=== PATIENT | male | born 1975 | race African-American/Black ===

== ENCOUNTER 2016-12-31 19:16 | Emergency (ER) | payer SELFPAY ==
[~2016-12-31] VITALS: Ht 185.4 cm; Wt 90.7 kg
[2016-12-31] MEDS ORDERED: CYCLOBENZAPRINE HCL 10 MG TAB PO ONE (22:15)
[2016-12-31] MEDS ORDERED: IBUPROFEN 600 MG TAB PO ONE (22:15)
[2016-12-31] MEDS ORDERED: IBU600T PO (22:33)
[2016-12-31] MEDS ORDERED: CYCL1TAB18 PO (22:34)
[2016-12-31 22:43] VITALS: BP 148/93
== END 2016-12-31 22:29 ==
LOC: ER 19:31
DX: S20.212A Contusion of left front wall of thorax, initial encounter (principal); F17.210 Nicotine dependence, cigarettes, uncomplicated; V49.49XA Driver injured in collision with other motor vehicles in traffic accident, initial encounter; Y93.89 Activity, other specified; Y99.8 Other external cause status; Y92.410 Unspecified street and highway as the place of occurrence of the external cause
CPT/HCPCS: 71101